=== PATIENT | female | born 1990 | race Caucasian/White ===

== ENCOUNTER 2024-05-02 12:27 | Emergency (ER) | payer BC, SELFPAY ==
[2024-05-02 12:34] VITALS: BP 143/74
[2024-05-02 14:26] VITALS: BP 126/88
--- NOTE | 2024-05-02 16:13 | ED.GENMED ---
ED Provider Triage
<Darrian Navarrete Jr., PA-C - Last Filed: 05/03/24 09:47>
-
Patient seen by provider in Triage?: Seen in Triage
Attestation: A medical screening examination has been initiated by a qualified medical provider. Based on the assessment performed at this time, it has been determined that an emergent medical condition may exist and the patient has been informed
that further medical evaluation and possible additional diagnostic testing may be needed.
HPI: Patient presenting with multiple weeks of constipation believes she may have a fecal impaction. Tried enema and oral medications at home without relief. Also having difficulty with urination at this point. Bladder scan labs and urinalysis
ordered pending additional assessment
GENERAL: Alert , in no apparent distress
EYE: No visual abnormalities.
NECK: Trachea midline
ENT: No visible abnormalities.
LUNGS: No acute respiratory distress
NEUROLOGICAL: Alert and oriented
SKIN: Skin intact. No visible changes.
MUSCULOSKELETAL: Moving extremities normally
PSYCH: Normal and appropriate interaction.
This is a medical evaluation conducted in person to initiate diagnostic evaluation and provide initial therapeutics. Please see further documentation by the treating clinician.
History of Present Illness
<Darrian Navarrete Jr., PA-C - Last Filed: 05/03/24 09:47>
General
Chief Complaint: Bowel Problem
Time Seen by Provider: 05/02/24 16:50
<Yari German NP - Last Filed: 05/03/24 20:04>
General
Source: patient
Exam Limitations: none
Nursing documentation reviewed up to this point in time: agreed with
History of Present Illness
History of Present Illness:
33-year-old female with history of GERD, IBS presents for feeling that she has the urge to have a bowel movement but cannot pass her stool. She feels it is in the rectal area but just will not pass. She denies abdominal pain, denies fever or
chills. She denies nausea or vomiting.
Past History
<Darrian Navarrete Jr., PA-C - Last Filed: 05/03/24 09:47>
Past History
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
Social History
Tobacco: Non-smoker
Personal: Single
Living: with family
Employment: Employed
Family History
Family History: Negative Early CAD
Review of Systems
<Yari German [employer] - Last Filed: 05/03/24 20:04>
Review of Systems
Allergies reviewed?: Yes
All Other Systems: ROS reviewed and negative except as documented in HPI and ROS
Constitutional: Denies fever
ABD/GI: Reports constipated; Denies abdominal pain, nausea or vomiting
: Denies dysuria or difficulty voiding
Phy Exam
<Yari German [employer] - Last Filed: 05/03/24 20:04>
Physical Exam
Physical Exam:
GENERAL: No acute distress. A&Ox3.
CONSTITUTIONAL: Afebrile.
EYES: Clear, conjunctivae normal
ENMT: moist mucus membranes, Pharynx nl
RESPIRATORY: Regular respirations, nonlabored, lungs clear.
CARDIOVASCULAR: Regular rate and rhythm, no murmurs, no rubs.
GI: Soft, nontender, normal BS
Rectal: Stool impacted in rectal vault
MUSCULOSKELETAL: Moves with ease. Well perfused.
SKIN: Warm, dry, pink
PSYCH: Normal mood and affect. Well kept, interactive and appropriate
NEUROLOGIC: Awake, alert and oriented. No focal neurological deficits
Course
<Darrian Navarrete Jr., PA-C - Last Filed: 05/03/24 09:47>
Orders/Labs/Results
Orders:
Orders
05/02/24 16:12
Bladder Scan- Treatment ONCE
Test Result ONCE
CR Abdomen - 1 View Urgent
Comment:
Reason For Exam: constipation
05/02/24 16:32
Comprehensive Metabolic Panel Urgent
HCG, Serum Qualitative Screen Urgent
Urinalysis Reflex To Culture Urgent
Date Specimen was Collected: 05/02/24
Time Specimen was Collected: 16:24
Urine Microscopic Reflex Cult Urgent
Urine Culture Urgent
BARBRA Source: U
Specimen Description:
Date Specimen was Collected: 05/02/24
Time Specimen was Collected: 16:24
05/02/24 17:21
Enema- Treatment ONCE
Type: Milk of Molasses
05/02/24 18:06
Fosfomycin [Monurol] 3 gm PO ONCE ONE
Abnormal Lab Results
05/02/24
16:32
Creatinine 0.5 L mg/dL
(0.6-1.0)
Leukocyte Esterase Rfl 2+ A
(Negative)
Urine WBC (Reflex) 26-30 A /HPF
(0-5)
Urine Bacteria (Reflex) Many A
(Negative)
05/02/24 16:32
05/02/24 16:32
Vital Signs
Initial and Last Documented VS:
Initial Vital Signs
Temp Pulse Resp BP Pulse Ox
98.1 F 108 20 143/74 98
05/02/24 12:34 05/02/24 12:34 05/02/24 12:34 05/02/24 12:34 05/02/24 12:34
Last Documented Vital Signs
Temp Pulse Resp BP Pulse Ox
98.1 F 82 16 126/88 96
05/02/24 14:26 05/02/24 14:26 05/02/24 14:26 05/02/24 14:26 05/02/24 14:26
<Yari V. Day, [employer] - Last Filed: 05/03/24 20:04>
Orders/Labs/Results
Orders:
Orders
05/02/24 16:12
Bladder Scan- Treatment ONCE
Test Result ONCE
CR Abdomen - 1 View Urgent
Comment:
Reason For Exam: constipation
05/02/24 16:32
Comprehensive Metabolic Panel Urgent
HCG, Serum Qualitative Screen Urgent
Urinalysis Reflex To Culture Urgent
Date Specimen was Collected: 05/02/24
Time Specimen was Collected: 16:24
Urine Microscopic Reflex Cult Urgent
Urine Culture Urgent
BARBRA Source: U
Specimen Description:
Date Specimen was Collected: 05/02/24
Time Specimen was Collected: 16:24
05/02/24 17:21
Enema- Treatment ONCE
Type: Milk of Molasses
05/02/24 18:06
Fosfomycin [Monurol] 3 gm PO ONCE ONE
Abnormal Lab Results
05/02/24
16:32
Creatinine 0.5 L mg/dL
(0.6-1.0)
Leukocyte Esterase Rfl 2+ A
(Negative)
Urine WBC (Reflex) 26-30 A /HPF
(0-5)
Urine Bacteria (Reflex) Many A
(Negative)
05/02/24 16:32
05/02/24 16:32
Vital Signs
Initial and Last Documented VS:
Initial Vital Signs
Temp Pulse Resp BP Pulse Ox
98.1 F 108 20 143/74 98
05/02/24 12:34 05/02/24 12:34 05/02/24 12:34 05/02/24 12:34 05/02/24 12:34
Last Documented Vital Signs
Temp Pulse Resp BP Pulse Ox
98.1 F 82 16 126/88 96
05/02/24 14:26 05/02/24 14:26 05/02/24 14:26 05/02/24 14:26 05/02/24 14:26
<Yari German [employer] - Last Filed: 05/03/24 20:04>
MDM/Problems Addressed
Differential Diagnosis Includes:
Constipation, fecal impaction
MDM/Problems Addressed:
33-year-old female with history of GERD, IBS presents for feeling that she has the urge to have a bowel movement but cannot pass her stool. She feels it is in the rectal area but just will not pass. She denies abdominal pain, denies fever or
chills. She denies nausea or vomiting.
Patient had very large bowel movement after milk and molasses enema, feeling much better. Stable for discharge
<Yari German, [employer] - Last Filed: 05/03/24 20:04>
*Critical Care Note
Total Time (30-74mins, 75-104mins- exclusive of procedures): Not Applicable
ED Attending Note
<Darrian Navarrete Jr., PA-C - Last Filed: 05/03/24 09:47>
-
Portions of this chart may have been created with voice recognition software.� Occasional wrong word or��sound alike� substitutions may have occurred due to the inherent limitations of voice recognition software.
Discharge Plan
Departure
Patient Disposition: Home (Routine Discharge)
Date of Disposition: 05/02/24
Time of Disposition: 18:03
Patient with high blood pressure during this ER visit?: No
Condition: Good
Discharge Problem:
Constipation, UTI (urinary tract infection)
Instructions: Urinary tract infections in adults, Constipation, Adult (DC)
Prescriptions:
No Action
Hyoscyamine
0.125 mg PO Q6H PRN (Reason: abd cramping)
Lisinopril Tab
10 mg PO DAILY
Omeprazole
40 mg PO DAILY
Probiotic
1 tab PO DAILY
sucralfate 1 GRAM tablet
1 g PO QID Qty: 40 2RF
Referrals:
Darrian Donaldson CRNP [Family Provider] - As needed
Activity Restrictions/Additional Instructions:
As we discussed, you have an early urinary tract infection.
You received a dose of Monurol for your urinary tract infection, only 1 dose is needed.
Interventions
Interventions:
*Risk Screen - Suicide Last Done: 05/02/24 12:34
*General Assessment Last Done: 05/02/24 12:34
*Neglect/Abuse Screening Last Done: 05/02/24 12:34
*Nursing Disposition Last Done: 05/02/24 18:47
UG-Jnalst-Idezdsqtww Assessment Last Done: 05/02/24 18:04
Discharge Date and Time
Discharge Date/Time: 05/02/24 18:47
Print Language: [place]ET[place]ESE
[2024-05-02 16:41] LABS: Urine Albumin Negative (Neg - Trace); Urine Bilirubin Negative (Negative); Urine Character Slightly Cloudy (Clear); Urine Color Yellow; Urine Glucose Negative (Negative); Urine Ketone Negative (Negative); Urine Leukocyte 2+ (Negative); Urine Nitrite Negative (Negative); Urine Occult Blood Negative (Negative); Urine Specific Gravity 1.015 (<1.030); Urine Urobilinogen Negative (Neg - 1+); Urine pH 6.5 (5.0-9.0)
[2024-05-02 16:47] LABS: Urine Mucus Few
[2024-05-02 16:48] LABS: Urine Bacteria Many (Negative); Urine Red Blood Cell 0-2 /HPF (0-2); Urine White Cell 26-30 /HPF (0-5)
[2024-05-02 16:58] LABS: HCG, Serum Qualitative Screen Negative
[2024-05-02 17:10] LABS: ALT (SGPT) 21 U/L (0-35); AST (SGOT) 25 U/L (14-36); Alkaline Phosphatase 85 U/L (38-126); Blood Urea Nitrogen 12 mg/dl (7-17); Calcium 9.8 mg/dl (8.4-10.2); Carbon Dioxide 24 mmol/L (22-30); Chloride 103 mmol/L (98-107); Glucose 95 mg/dl (70-99); Potassium 4.1 mmol/L (3.5-5.1); Sodium 140 mmol/L (135-145); Total Bilirubin 0.6 mg/dl (0.2-1.3); eGFR > 60.00
[2024-05-02] MEDS: MONUROL 3 GM PO (18:16)
== END 2024-05-02 18:47 | disposition home or self-care (01) ==
LOC: EMR 12:27
PROVIDERS: Physician Assistant; EMERGENCY PHYSICIAN Student in an Organized Health Care Education/Training Program
DX: K59.00 Constipation, unspecified (principal); N39.0 Urinary tract infection, site not specified; K21.9 Gastro-esophageal reflux disease without esophagitis; K58.9 Irritable bowel syndrome, unspecified; I10 Essential (primary) hypertension
CPT/HCPCS: 99284; 74018; 80053; 81003; 81015; 84703; 87077; 87086; 87147

== ENCOUNTER → 2024-06-22 08:24 | Outpatient (REF) | payer BC, SELFPAY | LOC: PAVMRI 08:24 | PROVIDERS: ATTENDING PHYSICIAN Otolaryngology Otolaryngology/Facial Plastic Surgery | DX: R43.0 Anosmia (principal) | CPT/HCPCS: 70553; A9575 ==